=== PATIENT | female | born 2000 | race Hispanic/Latino ===

== ENCOUNTER 2022-10-15 05:36 | Observation (INO) | payer BC ==
[~2022-10-15] VITALS: Ht 160 cm; Wt 92.1 kg
[2022-10-15 11:16] VITALS: BP 112/65
[2022-10-15] MEDS ORDERED: LIDOCAINE HCL 1% 20 ML VIAL ONE (12:48)
[2022-10-15] MEDS ORDERED: SILVER NITRATE APPLICATOR 1 SWAB TP ONE (12:53)
[2022-10-15 14:00] VITALS: BP 118/66
[2022-10-15] MEDS ORDERED: IBUP-2070 PO (16:24)
[2022-10-15 16:35] VITALS: BP_SYST 123; BP_DIAS 61; BP_DIAS 87
== END 2022-10-15 18:00 | disposition home or self-care (01) ==
LOC: EDH 05:36 → EDHIP 06:37 → INTOOBSV 06:37 → WSH 09:06
PROVIDERS: ADMIT Internal Medicine; ATTEND Internal Medicine
DX: O71.4 Obstetric high vaginal laceration alone (principal); Z3A.00 Weeks of gestation of pregnancy not specified
CPT/HCPCS: 59300; 99284; G0378 ×11